=== PATIENT | male | born 1985 | race American Indian/Alaskan Native ===

== ENCOUNTER 2017-01-30 08:54 | Emergency (ER) | payer MEDICAID, OTHER ==
[2017-01-30 09:02] VITALS: BMI 33.0
[2017-01-30 09:05] VITALS: BP 148/93; PULSE 85; RESP 18; TEMP 98.8; O2SAT 99
[2017-01-30] MEDS ORDERED: Sodium Chloride 0.9% 1,000 ML IV STA (09:11)
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
--- NOTE | 2017-01-30 18:49 | CARD ---
APPROVED REPORT EKG Measurement Heart [id number] <Conclusion> Normal sinus rhythm Nonspecific T wave abnormality Abnormal ECG
== END 2017-01-30 09:15 | disposition left against medical advice (07) ==
LOC: ED 08:54 → MERGE 08:54 → ED 09:15
DX: R07.9 Chest pain, unspecified (principal); Z91.19 Patient's noncompliance with other medical treatment and regimen; I10 Essential (primary) hypertension